=== PATIENT | male | born 1980 | race Caucasian/White ===

== ENCOUNTER 2017-08-29 10:08 | Emergency (ER) | payer SELFPAY ==
[~2017-08-29] VITALS: Ht 167.6 cm; Wt 92.1 kg
[~2017-08-29 10:08] MED LIST: ACHD5005 PO; ACYC800T PO; CEPH500C PO; HYDR-3714 PO; IBP800T PO; METH4TAB PO; PRD50T PO; SULF-222 PO; TRM50T PO
[2017-08-29 10:28] LABS: BASOPHILS # (AUTO) 0.1 10^3/uL (0.0-0.1); BASOPHILS % (AUTO) 1 % (0-10); EOSINOPHILS # (AUTO) 0.1 10^3/uL (0.0-0.3); EOSINOPHILS % (AUTO) 1 % (0-10); LYMPHOCYTES # (AUTO) 3.6 X 10^3 (1.0-4.0); LYMPHOCYTES % (AUTO) 33 % (12-44); MEAN CORPUSCULAR HEMOGLOBIN 30 PG (25-34); MEAN CORPUSCULAR HGB CONC 34 G/DL (32-36); MEAN CORPUSCULAR VOLUME 89 FL (80-99); MEAN PLATELET VOLUME 11.4 FL (7.4-10.4); MONOCYTES # (AUTO) 0.6 X 10^3 (0.0-1.0); MONOCYTES % (AUTO) 6 % (0-12); NEUTROPHILS # (AUTO) 6.5 X 10^3 (1.8-7.8); NEUTROPHILS % (AUTO) 59 % (42-75); PLATELET COUNT 296 10^3/uL (130-400); RED BLOOD COUNT 5.17 10^6/uL (4.35-5.85); RED CELL DISTRIBUTION WIDTH 12.7 % (10.0-14.5); WHITE BLOOD COUNT 10.9 10^3/uL (4.3-11.0)
--- NOTE | 2017-08-29 10:28 | ED Chest Pain ---
General Stated Complaint: CP,HIGH BP Source: patient, other Exam Limitations: no limitations History of Present Illness Time seen by provider: 10:01 Initial Comments Patient presents to ER from [facility] where he was told to come over because they were worried he might be having a heart attack on EKG. He is accompanied by EKGs from clinic. He says yesterday evening he was woken from sleep by a headache with a wave of nausea associated severe. He did not take anything for it and it went away after a few hours. He was also experiencing pain in his right arm from the elbow down to his third fourth and fifth digits on the palmar side. He says he's been moving a lot of heavy stuff lately afraid he may have overused his arm. He has some mild shortness Of breath but no more than usual. He smokes 2 packs per day cigarettes. He is also history of hypertension and was on medication for it one time but the medication made him feel bad she stopped taking it. When the clinic today because the chest pain that radiated to his right arm and wave of nausea that came with her they didn' t EKG and sent him to the ER. He is having no sweats and no prior history of coronary disease. His mother had some kind of dysrhythmia and about 10 years ago. His father from brain cancer. He is not a upper respirator medical history. No history of hypercholesterolemia or hypothyroidism. He denies recreational drug use except for marijuana occasionally. He drinks only rarely. Patient states that at the clinic he was given a tablet of nitroglycerin and 4 tablets of aspirin. He says his blood pressure was also elevated about 160s over 100 at the clinic this morning. However he is not having any chest pain or shortness of breath today. Allergies and Home Medications Allergies Coded Allergies: naproxen (Unverified Allergy, Mild, SWEATS, HIVES, 08/29/17) Penicillins (Verified Allergy, Unknown, 03/01/12) Review of Systems Constitutional: No chills, No diaphoresis, No malaise EENTM: No Blurred Vision, No Double Vision, No Eye Pain Respiratory: Denies Cough, Denies Shortness of Air Cardiovascular: See HPI, Chest Pain Gastrointestinal: Denies Abdominal Pain, Denies Constipated, Denies Diarrhea, Denies Nausea Genitourinary: Denies Burning, Denies Discharge Musculoskeletal: No back pain, No joint pain Skin: No pruritus, No rash Psychiatric/Neurological: Denies Headache, Denies Numbness, Denies Paresthesia Past Llwthmi-Igbhni-Dertbp Hx Patient Social History Alcohol Use: Rarely Uses Recreational Drug Use: Yes Drug of Choice: marijuana Smoking Status: Current Everyday Smoker Type Used: Cigarettes (2 ppd) Immunizations Up To Date Tetanus Booster (TDap): Unknown Surgeries Surgeries: Orthopedic Physical Exam Vital Signs Vital Sign - Last 12Hours 08/29/17 08/29/17 10:08 10:35 Temp 98.2 Pulse 59 Resp 18 B/P (MAP) 144/102 Pulse Ox 100 O2 Delivery Nasal Cannula O2 Flow Rate 1.00 Capillary Refill : General Appearance: No Apparent Distress, WD/WN HEENT: PERRL/EOMI, TMs Normal, Pharynx Normal Neck: Full Range of Motion, Non Tender, Supple Respiratory: Chest Non Tender, Lungs Clear, Normal Breath Sounds, No Accessory Muscle Use, No Respiratory Distress Cardiovascular: Regular Rate, Rhythm, No Edema, No Murmur, Normal Peripheral Pulses Gastrointestinal: Normal Bowel Sounds, Non Tender, Soft Extremity: Normal Capillary Refill, Non Tender, No Pedal Edema Neurologic/Psychiatric: Alert, Oriented x3 Skin: Normal Color, Warm/Dry Progress/Results/Core Measures Results/Orders Lab Results Laboratory Tests Test 08/29/17 10:17 Range/Units White Blood Count 10.9 4.3-11.0 10^3/uL Red Blood Count 5.17 4.35-5.85 10^6/uL Hemoglobin 15.6 13.3-17.7 G/DL Hematocrit 46 40-54 % Mean Corpuscular Volume 89 80-99 FL Mean Corpuscular Hemoglobin 30 25-34 PG Mean Corpuscular Hemoglobin Concent 34 32-36 G/DL Red Cell Distribution Width 12.7 10.0-14.5 % Platelet Count 296 130-400 10^3/uL Mean Platelet Volume 11.4 H 7.4-10.4 FL Neutrophils (%) (Auto) 59 42-75 % Lymphocytes (%) (Auto) 33 12-44 % Monocytes (%) (Auto) 6 0-12 % Eosinophils (%) (Auto) 1 0-10 % Basophils (%) (Auto) 1 0-10 % Neutrophils # (Auto) 6.5 1.8-7.8 X 10^3 Lymphocytes # (Auto) 3.6 1.0-4.0 X 10^3 Monocytes # (Auto) 0.6 0.0-1.0 X 10^3 Eosinophils # (Auto) 0.1 0.0-0.3 10^3/uL Basophils # (Auto) 0.1 0.0-0.1 10^3/uL Prothrombin Time 11.5 L 12.2-14.7 SEC INR Comment 0.8 0.8-1.4 Activated Partial Thromboplast Time 27 24-35 SEC Sodium Level 139 135-145 MMOL/L Potassium Level 4.0 3.6-5.0 MMOL/L Chloride Level 104 98-107 MMOL/L Carbon Dioxide Level 26 21-32 MMOL/L Anion Gap 9 5-14 MMOL/L Blood Urea Nitrogen 10 7-18 MG/DL Creatinine 0.85 0.60-1.30 MG/DL Estimat Glomerular Filtration Rate > 60 BUN/Creatinine Ratio 12 Glucose Level 101 70-105 MG/DL Calcium Level 10.0 8.5-10.1 MG/DL Magnesium Level 2.0 1.8-2.4 MG/DL Total Bilirubin 0.5 0.1-1.0 MG/DL Aspartate Amino Transf (AST/SGOT) 19 5-34 U/L Alanine Aminotransferase (ALT/SGPT) 29 0-55 U/L Alkaline Phosphatase 65 40-136 U/L Myoglobin 29.3 10.0-92.0 NG/ML Troponin I < 0.30 <0.30 NG/ML Total Protein 7.7 6.4-8.2 GM/DL Albumin 4.4 3.2-4.5 GM/DL My Orders Orders - MAUREENALPHONSE Cbc With Automated Diff (08/29/17 10:21) Magnesium (08/29/17 10:21) Ekg Tracing (08/29/17 10:21) Cardiac Profile 1 (08/29/17 10:21) Comprehensive Metabolic Panel (08/29/17 10:21) Myoglobin Serum (08/29/17 10:21) Protime With Inr (08/29/17 10:21) Partial Thromboplastin Time (08/29/17 10:21) O2 (08/29/17 10:21) Monitor-Rhythm Ecg Trace Only (08/29/17 10:21) Lipid Panel (08/30/17 06:00) Aspirin Chewable Tablet (Baby Aspirin Ch (08/29/17 10:30) Saline Lock/Iv-Start (08/29/17 10:21) Chest Pa/Lat (2 View) (08/29/17 10:21) Vital Signs/I&O Vital Sign - Last 12Hours 08/29/17 08/29/17 10:08 10:35 Temp 98.2 Pulse 59 Resp 18 B/P (MAP) 144/102 Pulse Ox 100 100 O2 Delivery Nasal Cannula Nasal Cannula O2 Flow Rate 1.00 1.00 Progress Note : Time: 10:52 Progress Note First EKG referenced was obtained at the [facility] and second EKG was obtained at point of arrival in the ER. He's not had any pain/headache since yesterday and only has the risk factor of smoking and hypertension for coronary disease. EKG from the clinic and today are similar except there is a first-degree AV block seen here that was not seen at the clinic. There is no credible T-wave elevation or depression. His story sounds more like he was having a headache which may be due to hypertension. His blood pressure is been okay since here resting. I will encourage him to follow-up with the clinic for blood pressure management. His arm pain seems to be more ulnar nerve or medial nerve entrapment. We'll recommend NSAIDs, Tylenol and ice as well as a wrap around the elbow. ECG Initial ECG Impression Date: Aug 29, 2017 Initial ECG Impression Time: 10:40 Initial ECG Rate: 60 Initial ECG Rhythm: Normal Sinus Initial ECG Intervals: Normal Initial ECG Impression: Normal, 1st Degree AV Block Initial ECG Comparisson: No Previous ECG Available Comment No T-wave elevation or depression seen. Diagnostic Imaging Diagonstic Imaging: Xray Plain Films/CT/US/NM/MRI: chest (2v) Reviewed: Reviewed by Me Departure Impression Impression: Primary Impression: Ulnar nerve entrapment at right elbow Additional Impressions: Hypertension Qualified Codes: I10 - Essential (primary) hypertension Headache Qualified Codes: R51 - Headache Disposition: 01 HOME, SELF-CARE Condition: Stable Departure-Patient Inst. Decision time for Depature: 11:16 Referrals: NO,LOCAL PHYSICIAN (PCP/Family) Primary Care Physician Patient Instructions: High Blood Pressure (DC) Add. Discharge Instructions: Follow-up with your primary care physician for blood pressure management. If your headache starts again use Tylenol 1000 mg every 8 hours. Apply ice to your elbow and take 800 mg of Motrin or thousand milligrams Tylenol every 8 hours if your right arm starts hurting again. He may also use a wrap around the elbow. Copy Copies To 1: CIARA MASCORRO TITUS J Aug 29, 2017 10:28
[2017-08-29] MEDS ORDERED: ASPIRIN 81 MG CHEW (CHILDREN'S ASA) PO ONE (10:30)
[2017-08-29 10:33] LABS: INR 0.8 (0.8-1.4); PROTHROMBIN TIME PATIENT 11.5 SEC (12.2-14.7)
[2017-08-29 10:48] LABS: ALANINE AMINOTRANSFERASE 29 U/L (0-55); ALBUMIN 4.4 GM/DL (3.2-4.5); ANION GAP 9 MMOL/L (5-14); ASPARTATE AMINO TRANSFERASE 19 U/L (5-34); BILIRUBIN,TOTAL 0.5 MG/DL (0.1-1.0); BLOOD UREA NITROGEN 10 MG/DL (7-18); BUN/CREATININE RATIO 12; CARBON DIOXIDE 26 MMOL/L (21-32); CHLORIDE 104 MMOL/L (98-107); CREATININE SERUM 0.85 MG/DL (0.60-1.30); GFR ESTIMATED > 60; GLUCOSE 101 MG/DL (70-105); SODIUM 139 MMOL/L (135-145); TOTAL PROTEIN 7.7 GM/DL (6.4-8.2)
[2017-08-29 10:55] LABS: MYOGLOBIN SERUM 29.3 NG/ML (10.0-92.0)
--- NOTE | 2017-08-29 10:56 | Diagnostic Imaging Report ---
INDICATION: Chest pain. COMPARISON: None. FINDINGS: Two views of the chest are obtained. Heart size is normal. The pulmonary vessels appear unremarkable. There is no pneumothorax, mediastinal widening or pleural fluid demonstrated. The lungs are clear. The osseous structures appear unremarkable. IMPRESSION: Negative chest. Dictated by: Dictated on workstation # [id number]
[2017-08-29 11:46] VITALS: BP 134/98
== END 2017-08-29 11:46 | disposition home or self-care (01) ==
LOC: EDUNIT# 10:08 → ER 10:10
DX: G56.21 Lesion of ulnar nerve, right upper limb (principal); I10 Essential (primary) hypertension; R51 Headache; F12.10 Cannabis abuse, uncomplicated; F17.210 Nicotine dependence, cigarettes, uncomplicated
CPT/HCPCS: 36415; 71020; 80053; 83735; 83874; 84484; 85025; 85610; 85730; 93005; 93041

== ENCOUNTER 2019-06-10 09:02 | Emergency (ER) | payer SELFPAY ==
[~2019-06-10] VITALS: Ht 165 cm; Wt 90.0 kg
[2019-06-10] MEDS ORDERED: LIDOCAINE/EPI 2% 1:100,00 (XYLOCAINE) 20 ML VIAL INJ ONE (09:30)
[2019-06-10] MEDS ORDERED: lisinopril (09:34)
[2019-06-10] MEDS ORDERED: SULF1TAB35 PO (10:41)
--- NOTE | 2019-06-10 10:41 | ED General ---
General Chief Complaint: Lower Extremity Stated Complaint: RIGHT LEG BIG HOLE Nursing Triage Note: pt presents to ed with complaints of r thigh injury/lac after hitting it with a car brandon when picking the brandon up. pt able to bear weight on r leg. no active bleeding noted from lac. pt reports normal sensation in r foot/calf. Nursing Sepsis Screen: No Definite Risk Source of Information: Patient Exam Limitations: No Limitations History of Present Illness Date Seen by Provider: Jun 10, 2019 Time Seen by Provider: 09:08 Initial Comments This 38-year-old gentleman presents to the emergency room with a laceration to the right thigh. He is ambulatory. He was lifting a large car brandon out of the vehicle when a metal protrusion struck his thigh resulting in a deep laceration. Bleeding is controlled at this time. He is denying significant pain. He reports being up-to-date on his tetanus immunization within the last 5 years. He retains distal movement and sensation. Allergies and Home Medications Allergies Coded Allergies: naproxen (Unverified Allergy, Mild, SWEATS, HIVES, 08/29/17) Penicillins (Verified Allergy, Unknown, 03/01/12) Home Medications Sulfamethoxazole/Trimethoprim 1 Each Tablet, 1 EACH PO BID Prescribed by: NILO REINA on 06/10/19 1041 Patient Home Medication List Home Medication List Reviewed: Yes Review of Systems Review of Systems Constitutional: no symptoms reported EENTM: no symptoms reported Respiratory: no symptoms reported Cardiovascular: no symptoms reported Gastrointestinal: no symptoms reported Genitourinary: no symptoms reported Musculoskeletal: no symptoms reported Skin: see HPI Psychiatric/Neurological: No Symptoms Reported Hematologic/Lymphatic: No Symptoms Reported Immunological/Allergic: no symptoms reported Past Qebpiac-Hhoacd-Znynwp Hx Past Med/Social Hx: Reviewed Nursing Past Med/Soc Hx Patient Social History Alcohol Use: Rarely Uses Recreational Drug Use: No Drug of Choice: marijuana Type Used: Cigarettes Recent Foreign Travel: No Contact w/Someone Who Travel: No Recent Infectious Disease Expo: No Physical Abuse: No Sexual Abuse: No Mistreated: No Fear: No Immunizations Up To Date Tetanus Booster (TDap): Less than 5yrs Past Medical History Surgeries: Yes (R FOOT, R HAND) Orthopedic Respiratory: No Cardiac: Yes Hypertension Neurological: No Genitourinary: No Gastrointestinal: No Musculoskeletal: No Endocrine: No HEENT: No Cancer: No Psychosocial: Yes (PUT PSYCH MEDS A FEW YEARS AGO. NOT TAKING NOW) Integumentary: No Blood Disorders: No Physical Exam Vital Signs Vital Signs - First Documented 06/10/19 09:19 Temp 36.5 Pulse 74 Resp 18 B/P (MAP) 151/93 Pulse Ox 95 Capillary Refill : Less Than 3 Seconds Height, Weight, BMI Height: 5'6" Weight: 203lbs. oz. 92.145075mp; 33.00 BMI Method:Stated General Appearance: No Apparent Distress, WD/WN HEENT: Normal ENT Inspection, Other (strabismus of right eye) Neck: Normal Inspection Respiratory: Lungs Clear, Normal Breath Sounds, No Accessory Muscle Use Cardiovascular: Regular Rate, Rhythm, No Edema, No Murmur Extremity: Other (deep laceration about 6 cm in length on the right anterior thigh. 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 Skin was then cleaned with alcohol and local anesthetic was injected. Wound was irrigated with 500 mL normal saline and explored with hemostats. Wound extended down to the muscle fascia but not into the fascia. No foreign bodies were identified. Betadine prep was applied. 4 sutures of 4-0 Prolene were placed internally to help alleviate tension on the wound. 11 sutures of 4-0 Prolene were then applied to approximate the skin. YESSY Spicer student assisted with the procedure under my personal supervision. Wound was dressed with triple antibiotic ointment and gauze. Progress/Results/Core Measures Suspected Sepsis Recent Fever Within 48 Hours: No Infection Criteria Present: None New/Unexplained Altered Menta: No Sepsis Screen: No Definite Risk SIRS Temperature: Pulse: 74 Respiratory Rate: 18 Blood Pressure 151 /93 Mean: 112 Results/Orders My Orders Orders - NILO CHOI MD Lidocaine/Epi 2% 1:100,000 (Xylocaine/Ep (06/10/19 09:30) Medications Given in ED Current Medications Medications Dose Ordered Sig/Dede Route Start Time Stop Time Status Last Admin Dose Admin Lidocaine/ Epinephrine 20 ml ONCE ONCE INJ 06/10/19 09:30 06/10/19 09:31 DC 06/10/19 10:08 15 ML Vital Signs/I&O 06/10/19 06/10/19 09:19 10:48 Temp 36.5 Pulse 74 76 Resp 18 18 B/P (MAP) 151/93 132/79 Pulse Ox 95 99 Capillary Refill : Less Than 3 Seconds Blood Pressure Mean: 112 Progress Note : Progress Note Wound was anesthetized with lidocaine with epinephrine. It was irrigated with 500 mL normal saline and explored with hemostats. Wound extended down to the muscle sheath but not into the muscle sheath. Wound was repaired by using tension with internal sutures of 4-0 chromic. Skin was then repaired with 4-0 Prolene in the usual fashion. Due to the deep nature of the wound, Bactrim was prescribed. Follow-up instructions were reviewed. Patient did not need a tetanus booster. Departure Impression Primary Impression: Laceration of right thigh Qualified Codes: S71.111A - Laceration without foreign body, right thigh, initial encounter Disposition: 01 HOME, SELF-CARE Condition: Improved Departure-Patient Inst. Decision time for Depature: 10:36 Referrals: NO,LOCAL PHYSICIAN (PCP/Family) Primary Care Physician Patient Instructions: Laceration Repair With Stitches (DC) Add. Discharge Instructions: You may take Tylenol (acetaminophen) for pain. Icing and elevation may also help with pain. Monitor your wound for signs of infection such as increasing redness, increasing swelling, heat, puslike drainage, or fever. Return to care promptly if you notice these symptoms. While active or in dirty/sweaty environments keep the wound covered. If just resting at home, you may leave open to air. The wound will lose some for the first couple of days. You may wish to apply antibiotic ointment or Vaseline to the dressing to prevent it from sticking to the wound. You may start showering this evening. You may allow soapy water to run over the wound but do not submerge until sutures are removed. Complete your antibiotic as prescribed to prevent deep tissue infection. Return in 10 days to have sutures removed. Asked to have Steri-Strips placed when sutures are removed. All discharge instructions reviewed with patient and/or family. Voiced understanding. Scripts Sulfamethoxazole/Trimethoprim (Bactrim Ds Tablet) 1 Each Tablet 1 EACH PO BID, #14 TAB Prov: NILO CHOI MD 06/10/19 NILO CHOI MD Jun 10, 2019 10:41
[2019-06-10] MEDS ORDERED: TRIM/SULFAMETH 160/800 (SEPTRA DS) TAB PO ONE (10:45)
[2019-06-10 10:48] VITALS: BP 132/79
== END 2019-06-10 10:48 | disposition home or self-care (01) ==
LOC: EDUNIT# 09:02 → ER 09:03
DX: S71.111A Laceration without foreign body, right thigh, initial encounter (principal); I10 Essential (primary) hypertension; Z88.0 Allergy status to penicillin; Z88.6 Allergy status to analgesic agent; W22.8XXA Striking against or struck by other objects, initial encounter
CPT/HCPCS: 12032

== ENCOUNTER 2019-06-20 12:19 | Emergency (ER) | payer SELFPAY ==
[~2019-06-20] VITALS: Ht 165 cm; Wt 90.0 kg
[~2019-06-20 12:19] MED LIST changes: +SULF1TAB35 PO; +lisinopril
--- NOTE | 2019-06-20 13:15 | NUR ---
ARE AROUND WOUND IS RED. THERE IS MILD SWELLING TO THE DISTAL PORTION. WELL APPROXIMATELY AND SCABBED OVER. PATIENT REFUSED TO WAIT FOR A PROVIDER TO LOOK AT THE REDNESS AND PREFERRED TO LEAVE.
[2019-06-20 13:17] VITALS: BP 138/88
== END 2019-06-20 13:17 | disposition home or self-care (01) ==
LOC: EDUNIT# 12:19 → ER 12:21
DX: S71.111D Laceration without foreign body, right thigh, subsequent encounter (principal); X58.XXXD Exposure to other specified factors, subsequent encounter

== ENCOUNTER 2021-05-12 14:23 | Emergency (ER) | payer SELFPAY ==
[~2021-05-12] VITALS: Ht 165 cm; Wt 99.0 kg
[~2021-05-12 14:23] MED LIST changes: -SULF1TAB35 PO; +SULF1TAB38 PO
--- NOTE | 2021-05-12 14:29 | ED Chest Pain ---
General Stated Complaint: CHEST PAIN History of Present Illness Date Seen by Provider: May 12, 2021 Time Seen by Provider: 14:29 Initial Comments 40-year-old male presents with some right-sided chest pain. He reports that started about 15 minutes prior to arrival. Patient reports he also got really sweaty. 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 He has some mild shortness of breath. He reports that he still smokes. Pain does not radiate. Is starting to ease up now that he is resting and inside. No reports of fever, chills, nausea, vomiting, diarrhea or other systemic complaints. Allergies and Home Medications Allergies Coded Allergies: naproxen (Unverified Allergy, Mild, SWEATS, HIVES, 08/29/17) Penicillins (Verified Allergy, Unknown, 03/01/12) Home Medications Albuterol Sulfate 18 Gm Hfa.aer.ad, 18 GM INH Q4H PRN for SHORTNESS OF BREATH Prescribed by: ERENDIRA LANDEROS on 05/12/21 1621 Prednisone 20 Mg Tab, 40 MG PO DAILY Prescribed by: ERENDIRA LANDEROS on 05/12/21 1621 Sulfamethoxazole/Trimethoprim 1 Each Tablet, 1 EACH PO BID Prescribed by: NILO REINA on 06/10/19 1041 Patient Home Medication List Home Medication List Reviewed: Yes Review of Systems Review of Systems Constitutional: No chills; diaphoresis; No fever Respiratory: Shortness of Air Cardiovascular: Denies Chest Pain Gastrointestinal: Denies Abdominal Pain, Denies Nausea, Denies Vomiting Musculoskeletal: no symptoms reported Skin: no symptoms reported Psychiatric/Neurological: No Symptoms Reported Hematologic/Lymphatic: No Symptoms Reported Past Okezlnm-Jkcawp-Sityez Hx Immunizations Up To Date Tetanus Booster (TDap): Less than 5yrs Past Medical History Surgeries: Yes (R FOOT, R HAND) Orthopedic Respiratory: No Cardiac: Yes Hypertension Neurological: No Genitourinary: No Gastrointestinal: No Musculoskeletal: No Endocrine: No HEENT: No Cancer: No Psychosocial: Yes (PUT PSYCH MEDS A FEW YEARS AGO. NOT TAKING NOW) Integumentary: No Blood Disorders: No Physical Exam Vital Signs Vital Signs - First Documented 05/12/21 14:23 Temp 36.0 Pulse 79 Resp 18 B/P (MAP) 148/81 (103) Pulse Ox 97 O2 Delivery Room Air Capillary Refill : Height, Weight, BMI Height: 5'6" Weight: 203lbs. oz. 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 Skin: Normal Color, Warm/Dry Procedures/Interventions Suture Size: 4-0 Progress/Results/Core Measures Results/Orders Lab Results Laboratory Tests Test 05/12/21 14:27 05/12/21 14:34 05/12/21 16:17 Range/Units White Blood Count 11.9 H 4.3-11.0 10^3/uL Red Blood Count 4.93 4.35-5.85 10^6/uL Hemoglobin 14.7 13.3-17.7 G/DL Hematocrit 44 40-54 % Mean Corpuscular Volume 90 80-99 FL Mean Corpuscular Hemoglobin 30 25-34 PG Mean Corpuscular Hemoglobin Concent 33 32-36 G/DL Red Cell Distribution Width 12.7 10.0-14.5 % Platelet Count 262 130-400 10^3/uL Mean Platelet Volume 11.3 H 7.4-10.4 FL Immature Granulocyte % (Auto) 0 % Neutrophils (%) (Auto) 53 42-75 % Lymphocytes (%) (Auto) 37 12-44 % Monocytes (%) (Auto) 6 0-12 % Eosinophils (%) (Auto) 3 0-10 % Basophils (%) (Auto) 1 0-10 % Neutrophils # (Auto) 6.3 1.8-7.8 X 10^3 Lymphocytes # (Auto) 4.4 H 1.0-4.0 X 10^3 Monocytes # (Auto) 0.8 0.0-1.0 X 10^3 Eosinophils # (Auto) 0.3 0.0-0.3 10^3/uL Basophils # (Auto) 0.1 0.0-0.1 10^3/uL Immature Granulocyte # (Auto) 0.0 0.0-0.1 10^3/uL Neutrophils % (Manual) 52 % Lymphocytes % (Manual) 37 % Monocytes % (Manual) 4 % Eosinophils % (Manual) 2 % Basophils % (Manual) 2 % Atypical Lymphocytes 3 % Platelet Estimate ADEQUATE Blood Morphology Comment NORMAL Prothrombin Time 12.1 L 12.2-14.7 SEC INR Comment 0.9 0.8-1.4 Activated Partial Thromboplast Time 27 24-35 SEC Sodium Level 136 135-145 MMOL/L Potassium Level 3.8 3.6-5.0 MMOL/L Chloride Level 102 98-107 MMOL/L Carbon Dioxide Level 24 21-32 MMOL/L Anion Gap 10 5-14 MMOL/L Blood Urea Nitrogen 12 7-18 MG/DL Creatinine 0.99 0.60-1.30 MG/DL Estimat Glomerular Filtration Rate 83 BUN/Creatinine Ratio 12 Glucose Level 119 H 70-105 MG/DL Calcium Level 9.3 8.5-10.1 MG/DL Corrected Calcium 8.9 8.5-10.1 MG/DL Magnesium Level 1.9 1.6-2.4 MG/DL Total Bilirubin 0.4 0.1-1.0 MG/DL Aspartate Amino Transf (AST/SGOT) 16 5-34 U/L Alanine Aminotransferase (ALT/SGPT) 24 0-55 U/L Alkaline Phosphatase 59 40-136 U/L Myoglobin 27.3 10.0-92.0 NG/ML Troponin I < 0.30 < 0.30 <0.30 NG/ML Total Protein 7.1 6.4-8.2 GM/DL Albumin 4.5 3.2-4.5 GM/DL Smear Scan YES My Orders Orders - ERENDIRA LANDEROS L DO Cbc With Automated Diff (05/12/21 14:29) Magnesium (05/12/21 14:29) Chest 1 View Ap/Pa Only (05/12/21 14:29) Ekg Tracing (05/12/21 14:29) Comprehensive Metabolic Panel (05/12/21 14:29) Myoglobin Serum (05/12/21 14:29) Protime With Inr (05/12/21 14:29) Partial Thromboplastin Time (05/12/21 14:29) Monitor-Rhythm Ecg Trace Only (05/12/21 14:29) Ed Iv/Invasive Line Start (05/12/21 14:29) Troponin I Fs (05/12/21 14:29) Covid 19 Inhouse Test (05/12/21 14:29) Albuterol/Ipra Inhalation Soln (Duoneb I (05/12/21 14:30) Svn Small Volume Nebulizer (05/12/21 14:29) Manual Differential (05/12/21 14:34) Troponin I Fs (05/12/21 16:19) Medications Given in ED Current Medications Medications Dose Ordered Sig/Dede Route Start Time Stop Time Status Last Admin Dose Admin Albuterol/ Ipratropium 3 ml ONCE ONCE INH 05/12/21 14:30 05/12/21 14:32 DC 05/12/21 14:45 3 ML Vital Signs/I&O 05/12/21 05/12/21 05/12/21 14:23 14:23 16:21 Temp 36.0 36.0 Pulse 79 74 Resp 18 16 B/P (MAP) 148/81 (103) 134/68 Pulse Ox 97 99 O2 Delivery Room Air Room Air Initial ECG Impression Date: May 12, 2021 Initial ECG Impression Time: 14:26 Initial ECG Rhythm: Normal Sinus, PVC Comment no acute st elevation or changes Departure Impression Primary Impression: Bronchitis Disposition: 01 HOME, SELF-CARE Condition: Stable Departure-Patient Inst. Referrals: NO,LOCAL PHYSICIAN (PCP/Family) Primary Care Physician Add. Discharge Instructions: Use the inhaler every 4 hours for 24 hours while awake then as needed Scripts Prednisone (Prednisone) 20 Mg Tab 40 MG PO DAILY, #6 TAB 0 Refills Prov: LANDEROS,ERENDIRA L DO 05/12/21 Albuterol Sulfate (Ventolin Hfa) 18 Gm Hfa.aer.ad 18 GM INH Q4H PRN for SHORTNESS OF BREATH, #1 EA Prov: LANDEROS,ERENDIRA L DO 05/12/21 LANDEROS,ERENDIRA L DO May 12, 2021 14:29
[2021-05-12] MEDS ORDERED: RT-ALBUTEROL/IPRATROPIUM 3 ML (DUONEB) VIAL INH ONE (14:30)
--- NOTE | 2021-05-12 14:47 | Diagnostic Imaging Report ---
INDICATION: Chest pain COMPARISON: 08/29/2017 FINDINGS: The lungs clear. No failure, effusion or pneumothorax. IMPRESSION: No acute appearing abnormality. Dictated by: Dictated on workstation # [id number]
[2021-05-12 15:10] LABS: BASOPHILS % (AUTO) 1 % (0-10); EOSINOPHILS % (AUTO) 3 % (0-10); HEMATOCRIT 44 % (40-54); HEMOGLOBIN 14.7 G/DL (13.3-17.7); LYMPHOCYTES # (AUTO) 4.4 X 10^3 (1.0-4.0); LYMPHOCYTES % (AUTO) 37 % (12-44); MEAN CORPUSCULAR HEMOGLOBIN 30 PG (25-34); MEAN CORPUSCULAR HGB CONC 33 G/DL (32-36); MEAN CORPUSCULAR VOLUME 90 FL (80-99); MEAN PLATELET VOLUME 11.3 FL (7.4-10.4); MONOCYTES # (AUTO) 0.8 X 10^3 (0.0-1.0); MONOCYTES % (AUTO) 6 % (0-12); NEUTROPHILS # (AUTO) 6.3 X 10^3 (1.8-7.8); NEUTROPHILS % (AUTO) 53 % (42-75); PLATELET COUNT 262 10^3/uL (130-400); WHITE BLOOD COUNT 11.9 10^3/uL (4.3-11.0)
[2021-05-12 15:11] LABS: BASOPHILS # (AUTO) 0.1 10^3/uL (0.0-0.1); EOSINOPHILS # (AUTO) 0.3 10^3/uL (0.0-0.3); SMEAR SCAN COMMENT YES
[2021-05-12 15:12] LABS: ATYPICAL LYMPHOCYTES 3 %; BASOPHILS % (MANUAL) 2 %; EOSINOPHILS % (MANUAL) 2 %; LYMPHOCYTES % (MANUAL) 37 %; MONOCYTES % (MANUAL) 4 %; NEUTROPHILS % (MANUAL) 52 %
[2021-05-12 15:13] LABS: PLATELET ESTIMATE ADEQUATE; RBC MORPH NORMAL
[2021-05-12 15:14] LABS: INR 0.9 (0.8-1.4); PROTHROMBIN TIME PATIENT 12.1 SEC (12.2-14.7)
[2021-05-12 15:16] LABS: CALCIUM 9.3 MG/DL (8.5-10.1); CREATININE SERUM 0.99 MG/DL (0.60-1.30); POTASSIUM 3.8 MMOL/L (3.6-5.0)
[2021-05-12 15:17] LABS: ALBUMIN 4.5 GM/DL (3.2-4.5); BILIRUBIN,TOTAL 0.4 MG/DL (0.1-1.0); MAGNESIUM 1.9 MG/DL (1.6-2.4); TOTAL PROTEIN 7.1 GM/DL (6.4-8.2)
[2021-05-12 16:21] VITALS: BP 134/68
[2021-05-12] MEDS ORDERED: PRD20T PO (16:21)
[2021-05-12] MEDS ORDERED: ALBU18HF2 INH (16:21)
== END 2021-05-12 16:22 | disposition home or self-care (01) ==
LOC: EDUNIT# 14:27 → ER FS 14:28
DX: J40 Bronchitis, not specified as acute or chronic (principal); I10 Essential (primary) hypertension; Z20.822 Contact with and (suspected) exposure to COVID-19
CPT/HCPCS: 36415; 71045; 80053; 83735; 83874; 84484; 85007; 85027; 85610; 85730; 87636; 93005; 93041